=== PATIENT | male | born 1940 | race Caucasian/White ===

== ENCOUNTER 2023-12-03 14:01 | Inpatient (IN) | payer MEDICARE, BC, SELFPAY ==
[2023-12-03] VITALS (10 sets, daily range): BP systolic 138–169; BP diastolic 64–80; BMI 18.4; BMI 18.6
--- NOTE | 2023-12-03 08:39 | ED.GENMED ---
History of Present Illness
General
Chief Complaint: Breathing Problem
Source: patient
Exam Limitations: none
Time Seen by Provider: 12/03/23 08:08
Travel History
Have you had any contact with someone who has COVID-19?: No
Do you have any symptoms of coronavirus? Fever > 100 degrees, chills, cough, shortness of breath, sore throat, loss of taste or smell, muscle aches, or headache?: No
History of Present Illness
History of Present Illness:
This is an 83-year-old male who presents with a history of pulmonary fibrosis. Patient states he is chronically short of breath but started feel more short of breath last night. He states he gets worse when his nose becomes congested which it
often does. He denies fevers. No chest pain. No hemoptysis. He follows with pulmonology.
Past History
Past History
ED Past Medical History: Arrthythmia (Atrial fib), COPD, GERD and Other (Pulmonary fibrosis, right diaphragm Paralysis , glaucoma)
ED Past Surgical History: Tonsilectomy and Other ([place] inguinal hernia, esophagectomy)
Social History
Tobacco: Former smoker
Alcohol: Daily (stinger 1)
Personal:
Living: senior care
Phy Exam
Physical Exam
Physical Exam:
CONSTITUTIONAL Patient alert and oriented to person, place and time. Vital signs reviewed.
HEAD atraumatic, normocephalic.
EYES eyelids normal to inspection, Pupils equally round and reactive to light, Extraocular muscles intact, Conjunctiva normal, Sclera normal.
NECK normal range of motion, Trachea midline, no jugular venous distention.
RESPIRATORY CHEST mild respiratory distress noted, Chest expansion equal, poor air movement bilaterally
CARDIOVASCULAR regular rate and rhythm, Heart sounds normal.
ABDOMEN No distention.
BACK normal inspection, no obvious deformities
UPPER EXTREMITY range of motion normal, Motor strength normal, no cyanosis, no edema.
LOWER EXTREMITY range of motion normal, Motor strength normal, no cyanosis, no edema.
NEURO Speech normal, No focal motor deficits, [place] coma scale 15, Memory normal, Cranial Nerves intact to screening exam.
SKIN skin warm, dry, and normal in color.
PSYCHIATRIC patient oriented to person place and time, Normal affect.
Scores
Heart Failure Risk
Heart Failure Risk Score: Not Applicable
Course
Orders/Labs/Results
Orders:
Orders
12/03/23 08:11
EKG [Electrocardiogram (*1)] Urgent
Reason for Study: Shortness of Breath
EKG- Treatment ONCE
12/03/23 08:24
Dexamethasone Sod Phosphate [Decadron] 10 mg IV NOW STA
Ipratropium/Albuterol Sulfate [Duoneb] 3 ml INH R NOW STA
12/03/23 08:26
Ipratropium/Albuterol Sulfate [Duoneb] 3 ml INH R NOW STA
Ipratropium/Albuterol Sulfate [Duoneb] 3 ml INH R NOW STA
12/03/23 08:49
Albuterol Sulfate [Ventolin Nebules] 7.5 mg INH R NOW STA
12/03/23 08:59
Complete Blood Count/With Diff Urgent
Comprehensive Metabolic Panel Urgent
NT-proBNP Urgent
12/03/23 Lunch
Regular
At Your Request: Limited Participation
12/03/23 10:12
CR Chest Portable - 1 View Urgent
Comment:
Reason For Exam: SOB
Reason Study Needs to be Portable: Patient Unstable
12/03/23 13:22
Admit/Transfer Patient As Directed
Co-Sign Provider:
Level of Care: Inpatient admission
Assign to:: Telemetry
Physician / Group: Dr. Hai Smiley/Hospitalists
Diagnosis: Acute Hypoxic Respiratory Insufficiency, Shortness of breath
Reason for Telemetry: Arrhythmia
Date to Stop Telemetry: 12/06/23
Time to Stop Telemetry: 11:00
Reason for Hospitalization: Acute Hypoxic Respiratory Insufficiency, Shortness of breath
Expected length of stay greater than two midnights?: Yes
ELOS- Estimated Length of Stay in days: 3
I certify the patient meets the requirements for IP care: Yes
12/03/23 13:24
Code Status As Directed
Resuscitation Status: Do not resuscitate
Reached after discussion with pt or family/Healthcare POA: Yes
Physician note:: At the time of admission on December 03, 2023, patient had full decision-making capacity, and
stated that he was a 'DNR' and fully expressed understanding of what that meant.
12/03/23 13:25
DNR Bracelet Application ONCE
12/03/23 13:37
PULMONARY CONSULT Routine
Consulting Provider: Zack Torre
Was physician already notified: Yes
Reason for consult: COPD Exacerbation
12/03/23 14:42
Albuterol [ProAIR HFA INHALER] 2 puff INH R Q6HPRN PRN
Metoclopramide [Reglan] 10 mg PO TIDPRN PRN
12/03/23 14:42
Activity As Directed
Activity Level: As Tolerated
Intake/ Output As Directed
Frequency: q12h
Pneumatic Compression Sleeves As Directed
Type: Knee high
Vital Signs As Directed
Frequency: Per unit guidelines
Weight As Directed
Frequency: Daily
O2 Therapy [RESP] Routine
Titrate/Wean O2 to maintain O2 sat greater than (%): 90
DX Deep Vein Thrombosis Video Routine
12/03/23 15:11
Troponin I Q6H
12/03/23 16:00
Brinzolamide/Brimonidine Tart [Simbrinza 1%-0.2% Ophth Susp] 0 drop LEFT EYE TID
Dexamethasone Sod Phosphate [Decadron] 4 mg IV Q8
12/03/23 20:00
FLUTICASONE PROPIONATE 110 mcg [FLOVENT 110mcg] 1 puff INH R BID
Heparin 5,000 units SC Q12
12/03/23 20:42
Troponin I Q6H
12/03/23 22:00
Calcium Carbonate Chewable [Tums] 1 tablet PO HS
Famotidine [Pepcid] 40 mg PO HS
Latanoprost [Xalatan Ophthalmic Solution] 0 drop BOTH EYES HS
Loratadine [Claritin] 10 mg PO HS
Montelukast Sodium [Singulair] 10 mg PO HS
Tamsulosin [Flomax] 0.4 mg PO HS
12/04/23 02:42
Troponin I Q6H
12/04/23 06:00
Basic Metabolic Panel IN AM
Complete Blood Count/With Diff IN AM
Magnesium IN AM
12/04/23 08:00
Furosemide [Lasix] 20 mg PO DAILY
Pantoprazole [Protonix] 40 mg PO DAILY
Tiotropium [place] 2.5 Mcg [Spiriva Respimat 2.5 Mcg] 2 puff INH R DAILY
12/04/23 08:42
Troponin I Q6H
12/04/23 14:42
Troponin I Q6H
12/04/23 20:42
Troponin I Q6H
12/05/23 06:00
Basic Metabolic Panel IN AM
Complete Blood Count/With Diff IN AM
12/06/23 06:00
Basic Metabolic Panel IN AM
Complete Blood Count/With Diff IN AM
12/06/23 11:00
DC Protocol for Telemetry ONCE
12/07/23 06:00
Basic Metabolic Panel IN AM
Complete Blood Count/With Diff IN AM
12/08/23 06:00
Basic Metabolic Panel IN AM
Complete Blood Count/With Diff IN AM
12/09/23 06:00
Basic Metabolic Panel IN AM
Complete Blood Count/With Diff IN AM
Abnormal Lab Results
12/03/23
08:59
RBC 3.58 L 10^6/uL
(4.70-6.10)
Hgb 10.3 L g/dL
(13.0-18.0)
Hct 32.3 L %
(39.0-52.0)
MCHC 31.9 L g/dL
(33.0-37.0)
RDW 15.9 H %
(11.5-14.5)
Absolute Neuts (auto) 7.4 H 10^3/uL
(1.4-6.5)
Absolute Lymphs (auto) 0.4 L 10^3/uL
(1.2-3.4)
Neutrophils % 88.8 H %
(42.2-75.2)
Lymphocytes % 4.7 L %
(20.5-51.1)
Chloride 97 L mmol/L
(98-107)
Carbon Dioxide 38 H mmol/L
(22-30)
BUN 31 H mg/dl
(9-20)
Creatinine 1.4 H mg/dL
(0.7-1.3)
Glucose 105 H mg/dl
(70-99)
12/03/23 08:59
12/03/23 08:59
Vital Signs
Initial and Last Documented VS:
Initial Vital Signs
Temp Pulse Resp BP Pulse Ox
98.4 F 94 22 161/67 99
12/03/23 08:22 12/03/23 08:22 12/03/23 08:22 12/03/23 08:22 12/03/23 08:22
Last Documented Vital Signs
Temp Pulse Resp BP Pulse Ox
98.2 F 100 18 169/79 100
12/03/23 14:59 12/03/23 14:59 12/03/23 14:59 12/03/23 14:59 12/03/23 14:59
MDM/Problems Addressed
MDM/Problems Addressed:
Pulmonary fibrosis, hypoxia
*Radiology
Radiology exam reviewed: all reviewed NAD by ED Provider
*Pulse Oximetry
Patient hypoxic: yes
*EKG
Interpreted by ED Provider?: Yes
Rate: normal
Rhythm: sinus
Interval: normal interval
QRS Pattern: normal QRS
Ischemia: no ischemia
*Deaf/Hard Of Hearing Specialist Interpretation
Rate: normal
Interpretation: normal
Rhythm: sinus
*Critical Care Note
Total Time (30-74mins, 75-104mins- exclusive of procedures): Not Applicable
Data Reviewed
Source: patient and spouse
Prescriptions/Medications Considered But Not Given:
Considered antibiotics but afebrile.
Patient Management
Discussion with other providers: Hospitalist
Escalation/DeEscalation of care consider admission/obs:
83-year-old male with a history of COPD as well as esophageal cancer and pulmonary fibrosis. Presents short of breath. Significant short of breath with attempts to sit up to urinate on reevaluation. Requiring more oxygen. Admit.
ED Attending Note
-
Portions of this chart may have been created with voice recognition software.� Occasional wrong word or��sound alike� substitutions may have occurred due to the inherent limitations of voice recognition software.
Discharge Plan
Departure
Patient Disposition: Admit
Date of Disposition: 12/03/23
Time of Disposition: 10:50
Admit to: Telemetry
Presentation/result/management discussed w/ accepting MD/DO: Hospitalist
Discharge Problem:
Pulmonary fibrosis
Interventions
Interventions:
*Risk Screen - Suicide Last Done: 12/03/23 09:34
*General Assessment Last Done: 12/03/23 09:32
*Neglect/Abuse Screening Last Done: 12/03/23 09:36
ED- Fall Risk Assessment Last Done: 12/03/23 09:36
*ED COVID-19 Vaccine History Last Done: 12/03/23 15:21
*Nursing Disposition Last Done: 12/03/23 14:35
ED- Pulmonary Assessment Last Done: 12/03/23 09:35
Discharge Date and Time
Discharge Date/Time: 12/03/23 14:35
[2023-12-03] MEDS: DECADRON 10 MG IV (08:59)
[2023-12-03 09:17] LABS: % Basophils 0.5 % (0-2); % Eosinophils 0.1 % (0-6); % Immature Granulocytes 0.4 % (0-0.5); % Lymphocytes 4.7 % (20.5-51.1); % Monocytes 5.5 % (1.7-9.3); % Neutrophils 88.8 % (42.2-75.2); Absolute Lymphocytes 0.4 10^3/uL (1.2-3.4); Absolute Monocytes 0.5 10^3/uL (0.1-0.6); Absolute Neutrophils 7.4 10^3/uL (1.4-6.5); Hematocrit 32.3 % (39.0-52.0); Hemoglobin 10.3 g/dL (13.0-18.0); Mean Corp Hgb Conc. 31.9 g/dL (33.0-37.0); Mean Corpuscular Hgb 28.8 pg (27.0-31.0); Mean Corpuscular Volume 90.2 fL (80.0-94.0); Mean Platelet Volume 10.3 fL (7.4-10.4); Nucleated Red Blood Cells % 0 % (-); Platelet Count 178 10^3/uL (130-400); Red Blood Cell Count 3.58 10^6/uL (4.70-6.10); Red Cell Dist. Width 15.9 % (11.5-14.5); White Blood Cell Count 8.3 10^3/uL (4.8-10.8)
[2023-12-03] MEDS: VENTOLIN NEBULES 7.5 MG INH (09:22)
[2023-12-03 09:28] LABS: ALT (SGPT) 19 U/L (0-50); AST (SGOT) 32 U/L (17-59); Albumin 3.9 g/dl (3.5-5.0); Alkaline Phosphatase 80 U/L (38-126); Blood Urea Nitrogen 31 mg/dl (9-20); Carbon Dioxide 38 mmol/L (22-30); Chloride 97 mmol/L (98-107); Glucose 105 mg/dl (70-99); Potassium 4.4 mmol/L (3.5-5.1); Sodium 136 mmol/L (135-145); Total Bilirubin 0.8 mg/dl (0.2-1.3); Total Protein 6.5 g/dl (6.3-8.2); eGFR 50.18
[2023-12-03 09:37] LABS: NT-proBNP < 20.0 pg/ml
[2023-12-03 15:49] LABS: Troponin I 0.015 ng/ml
[2023-12-03] MEDS: DECADRON 4 MG IV ×2 (16:06→23:10)
[2023-12-03] MEDS: SIMBRINZA 1%-0.2% OPHTH SUSP 1 DROP LEFT EYE ×2 (16:14→20:45)
--- NOTE | 2023-12-03 17:04 | HPS.HSE ---
Family Physician
-
Family Physician: Marika Mc
Chief Complaint
-
Shortness of breath
History of Present Illness
83 y/o male with past medical history of COPD (on 4 L of oxygen at home), pulmonary fibrosis, chronic prednisone use at home, right diaphragmatic paralysis, former smoker, daily alcohol use, suspected aspiration pneumonia, paroxysmal atrial
fibrillation (on Eliquis at home), esophageal cancer status post esophagectomy, glaucoma and depression, presented with shortness of breath since last night. Patient says he felt like he could not breath; he has chronic shortness of breath and this
was a worsening of his chronic shortness of breath, he could not sleep the entire night last night, patient's said he was saturating at 83% on his usual 4 L of nasal cannula oxygen, patient says his symptoms were typical for one of his COPD
exacerbations.
Medical History
Past Medical History
Past Medical History: Reports Other (As per HPI above)
Past Surgical History: Reports Orthopedic, Tonsilectomy and Other
Additional Past Surgical History:
Hernia Repair
Social History
Tobacco: Former Smoker
Alcohol: Daily
Drug: None
Family History
Family History: Cancer
Allergies / Home Medications
Allergies reflects when Allergies were last updated in [employer].
Home Medications with original date entered in [employer]
Allergy/Medication List:
Allergies
Allergy/AdvReac Type Severity Reaction Status Date / Time
acetaminophen [From Percocet] Allergy Unknown Verified 09/26/23 23:02
bee venom protein (honey bee) Allergy Unknown Verified 09/26/23 23:02
fluorouracil Allergy Unknown Verified 09/26/23 23:02
ipratropium Allergy Unknown Verified 12/03/23 09:20
lactose Allergy Unknown Verified 09/26/23 23:02
oxycodone [From Percocet] Allergy Unknown Verified 09/26/23 23:02
Quinolones Allergy Unknown Verified 09/26/23 23:02
Home Medications
beclomethasone dipropionate 80 mcg/actuation HFA breath activated aerosol (Qvar RediHaler) 1 inh inhalation R BID Lung/Breathing Issues 05/15/23
famotidine 40 mg tablet (Pepcid) 40 mg PO HS Gastrointestinal Issue 05/15/23
fluticasone propionate 50 mcg/actuation nasal spray,suspension 1 spray intranasal HS Congestion 05/15/23
loratadine 10 mg tablet (Claritin) 10 mg PO HS Allergies 05/15/23
montelukast 10 mg tablet 10 mg PO HS Lung/Breathing Issues 05/15/23
prednisone 5 mg tablet 6 mg PO DAILY Anti-Inflammatory 05/15/23
tamsulosin 0.4 mg capsule 0.4 mg PO HS Urinary Issue 05/15/23
tiotropium 2.5 mcg-olodaterol 2.5 mcg/actuation mist for inhalation (Stiolto Respimat) 2 puff inhalation R DAILY Lung/Breathing Issues 05/15/23
calcium carbonate 200 mg calcium (500 mg) chewable tablet (Tums) 400 mg PO HS 05/21/23
lansoprazole 30 mg capsule,delayed release 30 mg PO DAILY Gastrointestinal Issue 09/26/23
metoclopramide HCl 10 mg tablet 10 mg PO TIDPRN PRN GERD 09/26/23
oxymetazoline 0.05 % nasal mist (Afrin (oxymetazoline)) 1 spray intranasal TID 09/26/23
albuterol sulfate 90 mcg/actuation aerosol inhaler (ProAir HFA) 2 puff inhalation R Q6HPRN PRN sob 12/03/23
brinzolamide 1 %-brimonidine 0.2 % eye drops,suspension (Simbrinza) 1 drp LEFT EYE TID 12/03/23
furosemide 20 mg tablet (Lasix) 20 mg PO DAILY 12/03/23
latanoprost 0.005 % eye drops 1 drp BOTH EYES HS 12/03/23
Review of Systems
-
A 12 point ROS was completed and negative except as noted: Yes
Physical Exam
Vital Signs
Vital Signs
Temp Pulse Resp BP Pulse Ox
98.2 F 100 18 169/79 100
12/03/23 14:59 12/03/23 14:59 12/03/23 14:59 12/03/23 14:59 12/03/23 14:59
Physical Exam
General: No Apparent Distress
HEENT: NormoCephalic
Respiratory: Decreased Breath Sounds
Cardiac: S1/S2 and Regular Rhythm
GI: Soft, Non Tender and Normal Bowel Sounds
Musculoskeletal: No Cyanosis and No Edema
Skin: Warm and Dry
Neuro: Awake, Alert and AO x 3
Psych: Calm and Intact Judgment/Insight
Laboratory Results
-
12/03/23 08:59
12/03/23 08:59
Laboratory Results
Total Bilirubin 0.8 mg/dl (0.2-1.3) 12/03/23 08:59
AST 32 U/L (17-59) 12/03/23 08:59
ALT 19 U/L (0-50) 12/03/23 08:59
Alkaline Phosphatase 80 U/L (38-126) 12/03/23 08:59
Troponin I 0.015 ng/ml 12/03/23 15:11
Impression/Plan
-
Assessment/Plan
Acute Hypoxic Respiratory Failure (was saturating 83% on 4 L of nasal cannula oxygen at home)
Suspected COPD exacerbation
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
Former Smoker
History of Suspected Aspiration Pneumonia
Right diaphragm Paralysis
-Was saturating 83% on 4 L of nasal cannula oxygen at home
-On chronic prednisone 6 mg daily at home/azithromycin, Qvar. Stiolto
-Continue intravenous Decadron 4 mg Q8H
-Continue home Qvar and Stiolto or equivalent
-Wean oxygen to baseline home 4 L on both rest and exertion
-Pulmonary evaluation, recommendations appreciated
-Follows up with Dr. Espino outpatient
Right subcapital hip fracture - status post ORIF 05/16/2023
Normocytic anemia - subacute. Monitor CBC. Work-up was done last admission in September 2023.
History of esophageal cancer status post esophagectomy in 2003 with a pull through stomach
2007 positive PET at [facility] had a LN and have that removed- More chemo
Cancer free since then
GERD
Continue PPI, Pepcid
BPH with urinary retention - had a Martins catheter placed a week ago
Continue Flomax
#Paroxysmal atrial fibrillation
Patient's confirmed by phone on December 03, 2023 with me that patient's Eliquis and Diltiazem were stopped in September 2023 and June 2023, respectively
Recent echo with normal EF, mild to moderate TR, pulmonary pressure 40 to 45 mmHg
#Depression-sertraline
#Daily Alcohol use - no history of alcohol withdrawal
#Glaucoma
-Continue home eye drops
#Arthritis
#Underweight
#Ex-smoker
#DVT prophylaxis- Heparin
Code Status: DNR (confirmed by patient at the time of admission)
--- NOTE | 2023-12-03 17:08 | CON.PUL ---
Consultation
Consultation Request
Date/Time Consultation Requested: 12/03/2023 - 133
Date/Time Consultation Performed: 12/03/2023 - 1430
Requesting Provider: Dr. Smiley
Performing Provider: Dr. Torre
Reason for Consultation: COPD Exacerbation
Medical History
-
Chief Complaint: SOB
History of Present Illness:
83-year-old male with a past medical history of severe COPD with moderate�severe restrictive lung defect, emphysema, right lower lobe fibrosis, recurrent pneumonia, history of asthma, history of esophageal cancer s/p XRT, esophagectomy and gastric
pull-through (2003) who presents with worsening shortness of breath. In triage, he was on 10 L/min via nonrebreather. Patient saturating 99% on 10 L/min NRB. Labs showed elevated creatinine 1.4, Hb 10.3. Decadron and albuterol given and patient
being admitted to the hospitalist service. CXR shows no acute cardiopulmonary process. Pulmonary now consulted for additional recommendations.
When I saw the patient, he was sitting on edge of bed in NAD. He says he has 'small flares all the time.' Usually the flares get better after an hour or two, but this time it did not. He is on 4L/min ATC. He is still SOB while I am interviewing
him. Denies cough. He says his SOB began last night at 7PM. No inciting event prior to SOB. No sick contacts, no recent travel, no CP, AGUIAR, abd pain, f/c.
Of note, patient follows with us in the [facility] office with Dr. Yo, last office visit on 10/23/2023. For his COPD he is on Stiolto Respimat and Qvar 80mcg/actuation. He is steroid-dependent with 6 mg daily. He used to be on budesonide however
discontinued lactose and he is lactose intolerant. He uses albuterol 2 puffs up to 4 times daily, and is on azithromycin to 50 mg daily for anti-inflammatory effect. His baseline dyspnea is due to severe obstructive lung disease with emphysema and
right diaphragm paralysis. 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 He does have history of bronchiectasis and fibrosis in the right lung base and could be related to prior history of XRT back in 2003. Of note, his
last PFT was in September 2022 showing a severe obstructive lung defect with a negative bronchodilator response, as well as moderate�severe restriction and a severely reduced gas exchange capacity (DLco: 17%). He was to follow-up with Dr. Yo
again with PFT in March 2024.
PMHx: COPD, asthma, A-fib, bronchiectasis, alpha-1 antitrypsin carrier (PI MS phenotype), history of restrictive lung disease, history of esophageal cancer s/p esophagectomy and gastric pull-through (2003) with history of XRT, history of recurrent
pneumonia
PSHx: Esophagectomy, hernia repair, tonsillectomy, cataract surgery, glaucoma surgery (right eye)
Past Medical History
Past Medical History: Other (above as per HPI)
Past Surgical History: Other (above as per HPI)
Social History
Tobacco: Former Smoker (39-wjqb-ohoj history, quit 2000)
Alcohol: None
Drug: None
Family History
Family History: Asthma (Mother) and Other (Mother: Stroke)
Allergies / Home Medications
Allergies
Allergy/AdvReac Type Severity Reaction Status Date / Time
acetaminophen [From Percocet] Allergy Unknown Verified 09/26/23 23:02
bee venom protein (honey bee) Allergy Unknown Verified 09/26/23 23:02
fluorouracil Allergy Unknown Verified 09/26/23 23:02
ipratropium Allergy Unknown Verified 12/03/23 09:20
lactose Allergy Unknown Verified 09/26/23 23:02
oxycodone [From Percocet] Allergy Unknown Verified 09/26/23 23:02
Quinolones Allergy Unknown Verified 09/26/23 23:02
Home Medications
Medication Instructions Recorded Confirmed Last Taken Type
beclomethasone dipropionate 80 1 inh inhalation R BID 05/15/23 12/03/2309/26/23 History
mcg/actuation HFA breath activated Lung/Breathing Issues
aerosol (Qvar RediHaler)
famotidine 40 mg tablet (Pepcid) 40 mg PO HS Gastrointestinal Issue 05/15/23 12/03/23 12/02/23 History
fluticasone propionate 50 1 spray intranasal HS Congestion 05/15/23 12/03/23 12/02/23 History
mcg/actuation nasal
spray,suspension
loratadine 10 mg tablet (Claritin) 10 mg PO HS Allergies 05/15/23 12/03/23 12/02/23 History
montelukast 10 mg tablet 10 mg PO HS Lung/Breathing Issues 05/15/23 12/03/23 12/02/23 History
prednisone 5 mg tablet 6 mg PO DAILY Anti-Inflammatory 05/15/23 12/03/23 12/03/23 History
tamsulosin 0.4 mg capsule 0.4 mg PO HS Urinary Issue 05/15/23 12/03/23 12/02/23 History
tiotropium 2.5 mcg-olodaterol 2.5 2 puff inhalation R DAILY 05/15/23 12/03/23 12/02/23 History
mcg/actuation mist for inhalation Lung/Breathing Issues
(Stiolto Respimat)
calcium carbonate 200 mg calcium 400 mg PO HS 05/21/23 12/03/23 12/02/23 History
(500 mg) chewable tablet (Tums)
lansoprazole 30 mg capsule,delayed 30 mg PO DAILY Gastrointestinal 09/26/23 12/03/23 12/03/23 History
release Issue
metoclopramide HCl 10 mg tablet 10 mg PO TIDPRN PRN GERD 09/26/23 12/03/23 Unknown History
oxymetazoline 0.05 % nasal mist 1 spray intranasal TID 09/26/23 12/03/23 12/03/23 History
(Afrin (oxymetazoline))
albuterol sulfate 90 mcg/actuation 2 puff inhalation R Q6HPRN PRN sob 12/03/23 12/03/23 Unknown History
aerosol inhaler (ProAir HFA)
brinzolamide 1 %-brimonidine 0.2 % 1 drp LEFT EYE TID 12/03/23 12/03/23 12/02/23 History
eye drops,suspension (Simbrinza)
furosemide 20 mg tablet (Lasix) 20 mg PO DAILY 12/03/23 12/03/23 12/03/23 History
latanoprost 0.005 % eye drops 1 drp BOTH EYES HS 12/03/23 12/03/23 12/02/23 History
Review of Systems
-
History Source: Patient
All other systems: Negative unless noted
Vitals / Labs / Diagnostic Testing
Vital Signs
Temp Pulse Resp BP Pulse Ox
98.2 F 100 18 169/79 100
12/03/23 14:59 12/03/23 14:59 12/03/23 14:59 12/03/23 14:59 12/03/23 14:59
Lab Data
12/03/23 08:59
12/03/23 08:59
Diagnostic Testing:
Physical Exam
-
HEENT: Normocephalic and Anicteric
Cardiovascular: S1/S2 and Peripheral Edema (negative)
Respiratory: Wheeze (n), Rales (negative), Rhonchi (negative), Non-Labored Respirations and Accessory Resp Muscle Use (negative)
GI: Soft, Non Distended and Non Tender
Neurology: AO x 3
Skin: Warm and Dry
General: Comfortable and Chills (negative)
Assessment
-
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
and gastric pull-through (2003) who presents with worsening shortness of breath. In triage, he was on 10 L/min via nonrebreather. Patient saturating 99% on 10 L/min NRB. Labs showed elevated creatinine 1.4, Hb 10.3. Decadron and albuterol given
and patient being admitted to the hospitalist service. CXR shows no acute cardiopulmonary process. Pulmonary now consulted for additional recommendations.
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
XRT, history of recurrent pneumonia
Impression:
#Acute on chronic respiratory failure with hypoxemia - due to suspected COPD exacerbation (is on 4 L/min chronically ATC)
#Anemia
#Chronic hypercapnic respiratory failure
#Moderate-severe restrictive lung disease
Plan:
- Systemic steroids with wean as tolerated
- Continue supplemental oxygen and titrate flow rate to maintain SpO2 >88%
- Will check ambulatory pulse ox prior to discharge to assess if he has a new oxygen requirement
- He takes azithromycin chronically --> please continue this
- Take Stiolto at home and Qvar --> would give striverdi and spiriva with Flovent 220mcg
- Re-check venous blood gas to assess pCO2 given his elevated sHCO3 and Hx of hypercapneic respiratory failure
- Maintain MAP>65
- continue prn albuterol
- DVT ppx
Pulmonary will continue to follow along. He will need to continue to follow up with Dr. Rust after discharge.
Data:
CXR 12-03-2023: No acute cardiopulmonary process.
[2023-12-03] MEDS: ProAIR HFA INHALER 2 PUFF INH (19:27)
[2023-12-03] MEDS: FLOMAX 0.400000000000000022 MG PO (20:42)
[2023-12-03] MEDS: CLARITIN 10 MG PO (20:43)
[2023-12-03] MEDS: SINGULAIR 10 MG PO (20:43)
[2023-12-03] MEDS: TUMS 1 TABLET PO (20:43)
[2023-12-03] MEDS: PEPCID 20 MG PO (20:43)
[2023-12-03 21:51] LABS: Troponin I 0.016 ng/ml
[2023-12-03] MEDS: XALATAN OPHTHALMIC SOLUTION 1 DROP BOTH EYES (23:10)
[2023-12-04 03:42] VITALS: BP 159/82
[2023-12-04 03:55] LABS: % Basophils 0.1 % (0-2); % Immature Granulocytes 0.9 % (0-0.5); % Lymphocytes 6.3 % (20.5-51.1); % Monocytes 3.1 % (1.7-9.3); % Neutrophils 89.6 % (42.2-75.2); Absolute Immature Granulocytes 0.1 10^3/uL (0-0.05); Absolute Lymphocytes 0.4 10^3/uL (1.2-3.4); Absolute Monocytes 0.2 10^3/uL (0.1-0.6); Absolute Neutrophils 6.1 10^3/uL (1.4-6.5); Hematocrit 35.2 % (39.0-52.0); Hemoglobin 11.1 g/dL (13.0-18.0); Mean Corp Hgb Conc. 31.5 g/dL (33.0-37.0); Mean Corpuscular Volume 88.9 fL (80.0-94.0); Nucleated Red Blood Cells % 0 % (-); Platelet Count 179 10^3/uL (130-400); Red Blood Cell Count 3.96 10^6/uL (4.70-6.10); Red Cell Dist. Width 15.8 % (11.5-14.5); White Blood Cell Count 6.8 10^3/uL (4.8-10.8)
[2023-12-04 04:19] LABS: Troponin I 0.018 ng/ml
[2023-12-04 04:26] LABS: Blood Urea Nitrogen 37 mg/dl (9-20); Calcium 9.5 mg/dl (8.4-10.2); Chloride 94 mmol/L (98-107); Estimated Creatinine Clearance 34 ml/min; Glucose 159 mg/dl (70-99); Magnesium 2.3 mg/dl (1.6-2.3); Potassium 4.6 mmol/L (3.5-5.1); Sodium 137 mmol/L (135-145); eGFR 54.85
[2023-12-04 04:35] LABS: Carbon Dioxide 35 mmol/L (22-30)
[2023-12-04] MEDS: LIORESAL 2.5 MG PO (05:12)
[2023-12-04 07:20] VITALS: BP 144/68
[2023-12-04] MEDS: SPIRIVA RESPIMAT 2.5 MCG 2 PUFF INH (08:06)
[2023-12-04] MEDS: FLOVENT 220MCG 2 PUFF INH ×2 (08:06→19:13)
[2023-12-04] MEDS: STRIVERDI RESPIMAT 2 PUFF INH (08:07)
[2023-12-04] MEDS: ProAIR HFA INHALER 2 PUFF INH (08:08)
[2023-12-04] MEDS: DECADRON 4 MG IV ×2 (08:18→15:17)
[2023-12-04] MEDS: PROTONIX 40 MG PO (08:25)
[2023-12-04] MEDS: LASIX 20 MG PO (08:25)
[2023-12-04] MEDS: SIMBRINZA 1%-0.2% OPHTH SUSP 1 DROP LEFT EYE ×3 (08:31→22:05)
[2023-12-04] MEDS: FLEXERIL 5 MG PO ×2 (08:37→15:19)
[2023-12-04 09:53] LABS: Troponin I 0.019 ng/ml
--- NOTE | 2023-12-04 10:01 | W.PN.PUL.V3 ---
Today's Communication / Plan
-
Continue inhalers
Wean FiO2
Nebulizers if needed
Decadron-likely reduce tomorrow
Add azithromycin
Outpatient pulmonary follow-up
Assessment
-
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
and gastric pull-through (2003) who presents with worsening shortness of breath. In triage, he was on 10 L/min via nonrebreather. Patient saturating 99% on 10 L/min NRB. Labs showed elevated creatinine 1.4, Hb 10.3. Decadron and albuterol given
and patient being admitted to the hospitalist service. CXR shows no acute cardiopulmonary process. Pulmonary now consulted for additional recommendations.
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
XRT, history of recurrent pneumonia
Impression:
#Acute on chronic respiratory failure with hypoxemia - due to suspected COPD exacerbation (is on 4 L/min chronically ATC)
#Anemia
#Chronic hypercapnic respiratory failure
#Moderate-severe restrictive lung disease
Plan:
Respiratory status slowly improving
Continue supplemental oxygen-currently on 4 L-attempt to wean-on home oxygen 4 L
Assess discharge supplemental oxygen needs prior to discharge
Spiriva and Striverdi Respimat continues in addition to Flovent
Nebulizers if needed
Mucolytic's
Singulair continues
Decadron 4 mg IV every 8 hours-will reduce in the next 24 hours if continues to improve
Resume outpatient azithromycin 150 mg daily for COPD/anti-infective effects-has been taking for 3 years
DVT prophylaxis-on heparin
GI prophylaxis-on pantoprazole
Nutrition
Physical therapy
Reviewed with nursing
He will need to continue to follow up with Dr. Rust after discharge.
Data:
CXR 12-03-2023: No acute cardiopulmonary process.
Subjective Data
-
Date of Service:
Date of Service: December 04, 2023
Chief Complaint: Pulmonary Follow Up and Dyspnea Follow Up
Subjective:
Still with cough, some shortness of breath, some improvement, no complaints of chest pain, or abdominal pain
Review of Systems
General: Other (Per HPI)
Objective Data
Data Reviewed
Vital Signs / I&O:
Vital Signs
Temp Pulse Resp BP Pulse Ox
97.9 F 76 18 144/68 99
12/04/23 07:20 12/04/23 07:20 12/04/23 08:12 12/04/23 07:20 12/04/23 08:12
Intake and Output
12/03/23 12/04/23 12/05/23
06:59 06:59 06:59
Intake Total 240 / 240
Output Total 650 / 650
Balance -410 / -410
SaO2: 99
Nasal Cannula flow liters per minute: 4
Physical Exam
General: Respiratory Distress (n) and Comfortable
HEENT: Normocephalic, Anicteric and Moist Mucous Membranes
Cardiovascular: Regular Rhythm
Respiratory: Wheeze (Forced expiratory), Crackles (Rare basilar), Rhonchi (n), Non-Labored Respirations, Accessory Resp Muscle Use (n) and Stridor (n)
GI: Soft, Non Distended and Non Tender
Neurology: Awake, Alert and No Motor Deficits
Skin: Warm, Good Color, Cyanosis (n) and Jaundice
Labs/Micro/Reports
Lab Data
12/04/23 03:49
12/04/23 03:49
[2023-12-04 11:05] VITALS: BP 139/67
--- NOTE | 2023-12-04 11:33 | W.PN.HOSP.TC ---
Today's Communication/Plan
-
cw steroids
Check Iron studies
PT eval
Assessment / Plan
Assessment / Plan
Acute Hypoxic Respiratory Failure (was saturating 83% on 4 L of nasal cannula oxygen at home)
Suspected COPD exacerbation
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
Former Smoker
History of Suspected Aspiration Pneumonia
Right diaphragm Paralysis
-Was saturating 83% on 4 L of nasal cannula oxygen at home
-Improved clinically. Improved breathing in the back to 4 L of oxygen. No active bronchospasm.
-On chronic prednisone 6 mg daily at home/azithromycin, Qvar. Stiolto
-Continue intravenous Decadron 4 mg Q8H
-Continue home Qvar and Stiolto or equivalent
-Pulmonary evaluation, recommendations appreciated
-Follows up with Dr. Espino outpatient
Right subcapital hip fracture - status post ORIF 05/16/2023
Normocytic anemia - subacute. Monitor CBC. Work-up was done last admission in September 2023.
Restless legs vs spasms - check electrolytes, ferritin. If all ok and if predominantly assodicated with sleep would suspect restless leg syndrome.
History of esophageal cancer status post esophagectomy in 2003 with a pull through stomach
2007 positive PET [facility] had a LN and have that removed- More chemo
Cancer free since then
GERD
Continue PPI, Pepcid
BPH with urinary retention - had a Martins catheter placed a week ago
Continue Flomax
#Paroxysmal atrial fibrillation
Patient's confirmed by phone on December 03, 2023� to Dr Mondragon patient's Eliquis and Diltiazem were stopped in September 2023 and June 2023, respectively
Recent echo with normal EF, mild to moderate TR, pulmonary pressure 40 to 45 mmHg
#Depression-sertraline
#Daily Alcohol use - no history of alcohol withdrawal
#Glaucoma
-Continue home eye drops
#Arthritis
#Underweight
#Ex-smoker
#DVT prophylaxis- Heparin
Code Status:�DNR (confirmed by patient at the time of admission)
Anticipated Discharge: 24 - 48 hours
Subjective/Interval History
-
Date of Service: December 04, 2023
Breathing is greatly improved.
Back to his 4 L of oxygen.
Denies any chest pain.
Not much of cough.
No nausea or vomiting.
Patient has been having some spasms in the leg on for few days now. Last 2 days it has been worse. Sometimes it wakes him up from sleep. Sometimes noticed during the day. It involves both the legs. Denies any back pain associated with that.
Denies any sciatica symptoms. No tingling numbness in the legs. No motor weakness.
Objective Data
-
Labs:
Laboratory Results
12/04/23
03:49
WBC 6.8
Hgb 11.1 L
Hct 35.2 L
Plt Count 179
Sodium 137
Potassium 4.6
Chloride 94 L
Carbon Dioxide 35 H
BUN 37 H
Creatinine 1.3
Glucose 159 H
Calcium 9.5
Vital Signs:
Vital Signs
Temp Pulse Resp BP Pulse Ox
97.9 F 73 18 139/67 100
12/04/23 11:05 12/04/23 11:05 12/04/23 11:05 12/04/23 11:05 12/04/23 11:05
I&O
12/03/23 12/04/23 12/05/23
06:59 06:59 06:59
Intake Total 240 / 240
Output Total 650 / 650
Balance -410 / -410
Review of Systems
-
Constitutional: Denies Fever
Abdomen/GI: Denies Abdominal Pain, Nausea or Vomiting
Neuro: Denies Dizzy
Physical Exam
-
General: No Apparent Distress
HEENT: Moist Mucous Membranes
Respiratory: Crackles (Fine bilateral bases) and Non Labored Respirations; Negative Wheezes or Accessory Resp Muscle Use
Cardiac: Regular Rhythm and S1/S2
GI: Soft
Neuro: AO x 3 and No Motor Deficits
Psych: Calm; Negative Confused
Data Reviewed
-
Labs: Labs Reviewed by me
[2023-12-04 12:25] LABS: Iron 49 ug/dl (49-181)
[2023-12-04 12:35] LABS: Percent Saturation 10 % (20-50); Total Iron Binding Capacity 449 ug/dl (261-462)
[2023-12-04] MEDS: TYLENOL 650 MG PO (12:38)
[2023-12-04 13:23] LABS: Ferritin 11.2 ng/ml (17.9-464.0)
[2023-12-04 14:11] VITALS: BMI 18.6
[2023-12-04 15:15] VITALS: BP 150/73
[2023-12-04] MEDS: ZITHROMAX 250 MG PO (16:41)
--- NOTE | 2023-12-04 16:52 | CM ---
CM following re: d/c planning
Chart reviewed
CM met with the patient at bedside; IA completed
Pt states he resides with his spouse in a 1SH with no JARAD
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
Pt has been to SNF for rehab however doesn't recall which one and has also had VN however doesn't recall the agency
Pt does have a r/w, spc, w/c, & O2 for use as needed
Pt has prescription coverage and rx's are filled at [facility] [address] [facility]
Pt PCP-[facility]
Pt has no skilled needs and anticipates d/c home when stable
PLAN; d/c home no needs anticipated
[2023-12-04 19:38] VITALS: BP 142/73
[2023-12-04] MEDS: PEPCID 20 MG PO (21:58)
[2023-12-04] MEDS: FLOMAX 0.400000000000000022 MG PO (21:58)
[2023-12-04] MEDS: CLARITIN 10 MG PO (21:58)
[2023-12-04] MEDS: SINGULAIR 10 MG PO (21:59)
[2023-12-04] MEDS: TUMS 1 TABLET PO (21:59)
[2023-12-04] MEDS: XALATAN OPHTHALMIC SOLUTION 1 DROP BOTH EYES (22:06)
[2023-12-04 22:13] LABS: Troponin I 0.027 ng/ml
[2023-12-04 23:10] VITALS: BP 125/64
[2023-12-05] VITALS (7 sets, daily range): BP systolic 118–147; BP diastolic 55–79; PULSE 99; O2SAT 98
[2023-12-05] MEDS: DECADRON 4 MG IV ×3 (00:46→20:00)
[2023-12-05] MEDS: FLUSH (NSS) 2 FLUSH IV ×2 (00:48→20:01)
[2023-12-05 06:33] LABS: % Basophils 0.1 % (0-2); % Immature Granulocytes 0.6 % (0-0.5); % Lymphocytes 3.5 % (20.5-51.1); % Monocytes 4.3 % (1.7-9.3); % Neutrophils 91.5 % (42.2-75.2); Absolute Immature Granulocytes 0.1 10^3/uL (0-0.05); Absolute Lymphocytes 0.4 10^3/uL (1.2-3.4); Absolute Monocytes 0.5 10^3/uL (0.1-0.6); Absolute Neutrophils 9.5 10^3/uL (1.4-6.5); Hematocrit 36.4 % (39.0-52.0); Hemoglobin 11.5 g/dL (13.0-18.0); Mean Corp Hgb Conc. 31.6 g/dL (33.0-37.0); Mean Corpuscular Hgb 28.8 pg (27.0-31.0); Mean Platelet Volume 10.5 fL (7.4-10.4); Nucleated Red Blood Cells % 0 % (-); Platelet Count 189 10^3/uL (130-400); Red Cell Dist. Width 15.9 % (11.5-14.5); White Blood Cell Count 10.4 10^3/uL (4.8-10.8)
[2023-12-05 06:51] LABS: Blood Urea Nitrogen 41 mg/dl (9-20); Calcium 9.1 mg/dl (8.4-10.2); Carbon Dioxide 37 mmol/L (22-30); Chloride 95 mmol/L (98-107); Estimated Creatinine Clearance 34 ml/min; Glucose 126 mg/dl (70-99); Potassium 4.4 mmol/L (3.5-5.1); Sodium 136 mmol/L (135-145); eGFR 54.85
[2023-12-05] MEDS: FLOVENT 220MCG 2 PUFF INH ×2 (07:43→19:19)
[2023-12-05] MEDS: SPIRIVA RESPIMAT 2.5 MCG 2 PUFF INH (07:43)
[2023-12-05] MEDS: ProAIR HFA INHALER 2 PUFF INH ×2 (07:44→12:50)
[2023-12-05] MEDS: STRIVERDI RESPIMAT 2 PUFF INH (07:53)
[2023-12-05] MEDS: PROTONIX 40 MG PO (08:24)
[2023-12-05] MEDS: LASIX 20 MG PO (08:24)
[2023-12-05] MEDS: ZITHROMAX 250 MG PO (08:24)
[2023-12-05] MEDS: SIMBRINZA 1%-0.2% OPHTH SUSP 1 DROP LEFT EYE ×3 (08:25→20:11)
--- NOTE | 2023-12-05 12:37 | W.PN.HOSP.TC ---
Today's Communication/Plan
-
Start on IV iron
Wean steroids per pulmonary
DC planning
Assessment / Plan
Assessment / Plan
Acute Hypoxic Respiratory Failure (was saturating 83% on 4 L of nasal cannula oxygen at home)
Suspected COPD exacerbation
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
Former Smoker
History of Suspected Aspiration Pneumonia
Right diaphragm Paralysis
-Was saturating 83% on 4 L of nasal cannula oxygen at home
-Improved clinically. Improved breathing in the back to 4 L of oxygen. No active bronchospasm.
-On chronic prednisone 6 mg daily at home/azithromycin, Qvar. Stiolto
-Continue intravenous Decadron 4 mg [id number] per pulmonary
-Continue home Qvar and Stiolto or equivalent
-Pulmonary evaluation, recommendations appreciated
-Follows up with Dr. Espino outpatient
Right subcapital hip fracture - status post ORIF 05/16/2023
Normocytic anemia - subacute. Monitor CBC. Work-up was done last admission in September 2023.
Suspected restless legs-low ferritin noted. Mild anemia noted. Treat with IV iron while in-house complete IV iron therapy as an outpatient and see if restless legs improved. Otherwise patient advised to follow-up with neurologist try dopaminergic
medication after ruling out other causes.
History of esophageal cancer status post esophagectomy in 2003 with a pull through stomach
2007 positive PET [facility] had a LN and have that removed- More chemo
Cancer free since then
GERD
Continue PPI, Pepcid
BPH with urinary retention - had a Martins catheter placed a week ago
Continue Flomax
#Paroxysmal atrial fibrillation
Patient's confirmed by phone on December 03, 2023� to Dr Mondragon patient's Eliquis and Diltiazem were stopped in September 2023 and June 2023, respectively
Recent echo with normal EF, mild to moderate TR, pulmonary pressure 40 to 45 mmHg
#Depression-sertraline
#Daily Alcohol use - no history of alcohol withdrawal
#Glaucoma
-Continue home eye drops
#Arthritis
#Underweight
#Ex-smoker
#DVT prophylaxis- Heparin
Code Status:�DNR (confirmed by patient at the time of admission)
Anticipated Discharge: Within 24 hours
Subjective/Interval History
-
Date of Service: December 05, 2023
Patient feels improved with the breathing. Currently on 4 L which is his chronic FiO2.
Continues to have restless legs.
Objective Data
-
Labs:
Laboratory Results
12/05/23
05:24
WBC 10.4
Hgb 11.5 L
Hct 36.4 L
Plt Count 189
Sodium 136
Potassium 4.4
Chloride 95 L
Carbon Dioxide 37 H
BUN 41 H
Creatinine 1.3
Glucose 126 H
Calcium 9.1
Vital Signs:
Vital Signs
Temp Pulse Resp BP Pulse Ox
98.1 F 87 20 138/72 100
12/05/23 11:00 12/05/23 11:00 12/05/23 11:00 12/05/23 11:00 12/05/23 11:00
I&O
12/04/23 12/05/23 12/06/23
06:59 06:59 06:59
Intake Total 240 / 240 960 / 960
Output Total 650 / 650 250 / 250
Balance -410 / -410 710 / 710
Review of Systems
-
Constitutional: Denies Fever
EENT: Denies Sore Throat
Cardiac: Denies Chest Pain
Abdomen/GI: Denies Abdominal Pain, Nausea or Vomiting
Neuro: Denies Dizzy
Physical Exam
-
General: No Apparent Distress
HEENT: Moist Mucous Membranes
Respiratory: Crackles (Bibasilar) and Non Labored Respirations; Negative Wheezes or Accessory Resp Muscle Use
Cardiac: Regular Rhythm and S1/S2
Neuro: AO x 3
Data Reviewed
-
Labs: Labs Reviewed by me
[2023-12-05] MEDS: FERRLECIT 110 MG IV (13:22)
--- NOTE | 2023-12-05 13:53 | W.PN.PUL.V3 ---
Today's Communication / Plan
-
.
Decrease steroids.
Consider changing to oral steroids with wean in the next 24 hours.
Wean oxygen.
Increase activity.
Assessment
-
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
and gastric pull-through (2003) who presents with worsening shortness of breath. In triage, he was on 10 L/min via nonrebreather. Patient saturating 99% on 10 L/min NRB. Labs showed elevated creatinine 1.4, Hb 10.3. Decadron and albuterol given
and patient being admitted to the hospitalist service. CXR shows no acute cardiopulmonary process. Pulmonary now consulted for additional recommendations.
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
XRT, history of recurrent pneumonia
Impression:
#Acute on chronic respiratory failure with hypoxemia - due to suspected COPD exacerbation (is on 4 L/min chronically ATC)
#Anemia
#Chronic hypercapnic respiratory failure
#Moderate-severe restrictive lung disease
Plan:
His respiratory status continues to improve.
Wean his supplemental oxygen-currently on 4 L-attempt to wean-on home oxygen 4 L
Spiriva and Striverdi Respimat continues in addition to Flovent
Nebulizers if needed
Mucolytic's
Singulair continues
Decadron 4 mg IV every 8 hours-will reduce in the next 24 hours if continues to improve.
We resumed his outpatient azithromycin 150 mg daily for COPD/anti-infective effects-has been taking for 3 years
DVT prophylaxis-on heparin
GI prophylaxis-on pantoprazole
Nutrition
Physical therapy
Reviewed with nursing as well as his at the bedside
He will need to continue to follow up with Dr. Rust after discharge.
Data:
CXR 12-03-2023: No acute cardiopulmonary process.
Subjective Data
-
Date of Service:
Date of Service: December 05, 2023
Chief Complaint: Pulmonary Follow Up and Dyspnea Follow Up
Subjective:
Overall feels better, no chest pain, no mucus, no abdominal pain, has some leg cramping
Review of Systems
General: Other (per HPI)
Objective Data
Data Reviewed
Vital Signs / I&O:
Vital Signs
Temp Pulse Resp BP Pulse Ox
98.1 F 96 20 138/72 100
12/05/23 11:00 12/05/23 12:53 12/05/23 12:53 12/05/23 11:00 12/05/23 11:00
Intake and Output
12/04/23 12/05/23 12/06/23
06:59 06:59 06:59
Intake Total 240 / 240 960 / 960
Output Total 650 / 650 250 / 250
Balance -410 / -410 710 / 710
SaO2: 100
Nasal Cannula flow liters per minute: 4
Physical Exam
General: Respiratory Distress (n) and Comfortable
HEENT: Normocephalic, Anicteric and Moist Mucous Membranes
Cardiovascular: Regular Rhythm
Respiratory: Wheeze (Forced expiratory), Crackles (Rare basilar), Rhonchi (n), Non-Labored Respirations, Accessory Resp Muscle Use (n) and Stridor (n)
GI: Soft, Non Distended and Non Tender
Neurology: Awake, Alert and No Motor Deficits
Skin: Warm, Good Color, Cyanosis (n) and Jaundice
Labs/Micro/Reports
Lab Data
12/05/23 05:24
12/05/23 05:24
[2023-12-05] MEDS: SINGULAIR 10 MG PO (21:22)
[2023-12-05] MEDS: FLOMAX 0.400000000000000022 MG PO (21:22)
[2023-12-05] MEDS: CLARITIN 10 MG PO (21:22)
[2023-12-05] MEDS: TUMS 1 TABLET PO (21:22)
[2023-12-05] MEDS: PEPCID 20 MG PO (21:22)
[2023-12-05] MEDS: XALATAN OPHTHALMIC SOLUTION 1 DROP LEFT EYE (21:24)
[2023-12-06 03:22] VITALS: BP 145/72
--- NOTE | 2023-12-06 05:49 | PTCARENOTE ---
Patient's HR to 160 for 6 sec while sleeping this shift. Patient remained asymptomatic. HR returned to baseline with no further episodes/ For continued evaluation.
[2023-12-06 06:00] VITALS: BMI 18.6
[2023-12-06 07:30] VITALS: BP 125/68
[2023-12-06] MEDS: PROTONIX 40 MG PO (08:09)
[2023-12-06] MEDS: DECADRON 4 MG IV (08:09)
[2023-12-06] MEDS: ZITHROMAX 250 MG PO (08:09)
[2023-12-06] MEDS: LASIX 20 MG PO (08:09)
[2023-12-06] MEDS: SIMBRINZA 1%-0.2% OPHTH SUSP 1 DROP LEFT EYE ×2 (08:11→16:26)
--- NOTE | 2023-12-06 08:31 | W.PN.PUL.V3 ---
Today's Communication / Plan
-
Continue to wean oxygen.
Increase activity.
Discontinue Decadron.
Changed to oral prednisone with slow taper
Assessment
-
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
and gastric pull-through (2003) who presents with worsening shortness of breath. In triage, he was on 10 L/min via nonrebreather. Patient saturating 99% on 10 L/min NRB. Labs showed elevated creatinine 1.4, Hb 10.3. Decadron and albuterol given
and patient being admitted to the hospitalist service. CXR shows no acute cardiopulmonary process. Pulmonary now consulted for additional recommendations.
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
XRT, history of recurrent pneumonia
Impression:
#Acute on chronic respiratory failure with hypoxemia - due to suspected COPD exacerbation (is on 4 L/min chronically ATC)
#Anemia
#Chronic hypercapnic respiratory failure
#Moderate-severe restrictive lung disease
Plan:
.
The patient's pulmonary status continues to improve
Wean his supplemental oxygen-currently on 4 L-attempt to wean-on home oxygen 4 L
Spiriva and Striverdi Respimat continues in addition to Flovent
Nebulizers if needed
Mucolytic's
Singulair continues.
Discontinue intravenous Decadron.
Changed to prednisone with slow taper
We resumed his outpatient azithromycin 150 mg daily for COPD/anti-infective effects-has been taking for 3 years-reinitiated 12/04/23
DVT prophylaxis-on heparin
GI prophylaxis-on pantoprazole
Nutrition
Physical therapy
.
Reviewed with Dr. Arellano.
Stable for potential discharge from a pulmonary perspective
He will need to continue to follow up with Dr. Rust after discharge.
Data:
CXR 12-03-2023: No acute cardiopulmonary process.
Subjective Data
-
Date of Service:
Date of Service: December 06, 2023
Chief Complaint: Pulmonary Follow Up and Dyspnea Follow Up
Subjective:
Feels better, oxygen, wheezing, some chest congestion, occasional cough, no chest pain or abdominal pain
Review of Systems
General: Other ( per HPI)
Objective Data
Data Reviewed
Vital Signs / I&O:
Vital Signs
Temp Pulse Resp BP Pulse Ox
98 F 80 19 145/72 98
12/06/23 03:22 12/06/23 03:22 12/06/23 03:22 12/06/23 03:22 12/06/23 03:22
Intake and Output
12/05/23 12/06/23 12/07/23
06:59 06:59 06:59
Intake Total 960 / 960 1440 / 1440
Output Total 250 / 250 1200 / 1200
Balance 710 / 710 240 / 240
SaO2: 98
Nasal Cannula flow liters per minute: 4
Physical Exam
General: Respiratory Distress (n) and Comfortable
HEENT: Normocephalic, Anicteric and Moist Mucous Membranes
Cardiovascular: Regular Rhythm
Respiratory: Wheeze (Forced expiratory), Crackles (Rare basilar), Rhonchi (n), Non-Labored Respirations, Accessory Resp Muscle Use (n) and Stridor (n)
GI: Soft, Non Distended and Non Tender
Neurology: Awake, Alert and No Motor Deficits
Skin: Warm, Good Color, Cyanosis (n) and Jaundice
Labs/Micro/Reports
Lab Data
12/05/23 05:24
12/05/23 05:24
[2023-12-06] MEDS: ProAIR HFA INHALER 2 PUFF INH (08:34)
[2023-12-06] MEDS: SPIRIVA RESPIMAT 2.5 MCG 2 PUFF INH (08:35)
[2023-12-06] MEDS: FLOVENT 220MCG 2 PUFF INH (08:35)
[2023-12-06] MEDS: STRIVERDI RESPIMAT 2 PUFF INH (08:36)
--- NOTE | 2023-12-06 11:19 | W.PN.HOSP.TC ---
Today's Communication/Plan
-
DC
Assessment / Plan
Assessment / Plan
Acute Hypoxic Respiratory Failure (was saturating 83% on 4 L of nasal cannula oxygen at home)
Suspected COPD exacerbation
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
Former Smoker
History of Suspected Aspiration Pneumonia
Right diaphragm Paralysis
-Was saturating 83% on 4 L of nasal cannula oxygen at home
-Improved clinically. Improved breathing in the back to 4 L of oxygen. No active bronchospasm.
-On chronic prednisone 6 mg daily at home/azithromycin, Qvar. Stiolto
-Continue intravenous Decadron 4 mg [id number] per pulmonary
-Continue home Qvar and Stiolto or equivalent
-Pulmonary evaluation, recommendations appreciated
-Follows up with Dr. Espino outpatient
Right subcapital hip fracture - status post ORIF 05/16/2023
Normocytic anemia - subacute. stable CBC. Work-up was done last admission in September 2023.
Suspected restless legs-low ferritin noted. Mild anemia noted. Treat with IV iron while in-house complete IV iron therapy as an outpatient and see if restless legs improved. Otherwise patient advised to follow-up with neurologist try dopaminergic
medication after ruling out other causes.
History of esophageal cancer status post esophagectomy in 2003 with a pull through stomach
2007 positive PET [facility] had a LN and have that removed- More chemo
Cancer free since then
GERD
Continue PPI, Pepcid
BPH with urinary retention - had a Martins catheter placed a week ago
Continue Flomax
#Paroxysmal atrial fibrillation
Patient's confirmed by phone on December 03, 2023� to Dr Mondragon patient's Eliquis and Diltiazem were stopped in September 2023 and June 2023, respectively
Recent echo with normal EF, mild to moderate TR, pulmonary pressure 40 to 45 mmHg
#Depression-sertraline
#Daily Alcohol use - no history of alcohol withdrawal
#Glaucoma
-Continue home eye drops
#Arthritis
#Underweight
#Ex-smoker
#DVT prophylaxis- Heparin
DC after seen by pulmonary
Code Status:�DNR (confirmed by patient at the time of admission)
Anticipated Discharge: Today
Subjective/Interval History
-
Date of Service: December 06, 2023
Breathing remains improved.
No new symptoms.
Objective Data
-
Vital Signs:
Vital Signs
Temp Pulse Resp BP Pulse Ox
98.2 F 82 18 125/68 99
12/06/23 07:30 12/06/23 08:44 12/06/23 08:44 12/06/23 07:30 12/06/23 08:44
I&O
12/05/23 12/06/23 12/07/23
06:59 06:59 06:59
Intake Total 960 / 960 1440 / 1440
Output Total 250 / 250 1200 / 1200
Balance 710 / 710 240 / 240
Review of Systems
-
Cardiac: Denies Chest Pain
Abdomen/GI: Reports Diarrhea (one large stool today); Denies Nausea or Vomiting
Neuro: Denies Dizzy
Physical Exam
-
General: No Apparent Distress
HEENT: Moist Mucous Membranes
Respiratory: Crackles (few faint crackes bases) and Non Labored Respirations; Negative Wheezes or Accessory Resp Muscle Use
Cardiac: Regular Rhythm and S1/S2
GI: Soft
Neuro: AO x 3
[2023-12-06 11:22] VITALS: BP 146/79
[2023-12-06] MEDS: FERRLECIT 110 MG IV (14:36)
--- NOTE | 2023-12-06 15:11 | W.DS.TRANS ---
DC Summary - Spark Tester
-
Discharge Instructions:
Sleep Apnea Risk Intermediate
Discharge Diagnosis/Procedures COPD flare; acute hypoxic on chronic respiratory
failure; on home O2 at 4 L; history of
pulmonary fibrosis
Acute on chronic hypoxic respiratory
Diet Regular
Activity As tolerated
Driving Restrictions As prior to admission
Bathing Restrictions None
Blood Work Repeat Iron studies in 2-4 weeks through your
PCP
Instructions:
Stand-Alone Forms:
Changes to Home Medications: Yes
Discharge Medications:
DC Medications w/original date entered in [facility]
beclomethasone dipropionate 80 mcg/actuation HFA breath activated aerosol (Qvar RediHaler) 1 inh inhalation R BID Lung/Breathing Issues 05/15/23
famotidine 40 mg tablet (Pepcid) 40 mg PO HS Gastrointestinal Issue 05/15/23
fluticasone propionate 50 mcg/actuation nasal spray,suspension 1 spray intranasal HS Congestion 05/15/23
loratadine 10 mg tablet (Claritin) 10 mg PO HS Allergies 05/15/23
montelukast 10 mg tablet 10 mg PO HS Lung/Breathing Issues 05/15/23
tamsulosin 0.4 mg capsule 0.4 mg PO HS Urinary Issue 05/15/23
tiotropium 2.5 mcg-olodaterol 2.5 mcg/actuation mist for inhalation (Stiolto Respimat) 2 puff inhalation R DAILY Lung/Breathing Issues 05/15/23
calcium carbonate 200 mg calcium (500 mg) chewable tablet (Tums) 400 mg PO HS Supplement 05/21/23
lansoprazole 30 mg capsule,delayed release 30 mg PO DAILY Gastrointestinal Issue 09/26/23
metoclopramide HCl 10 mg tablet 10 mg PO TIDPRN PRN GERD 09/26/23
oxymetazoline 0.05 % nasal mist (Afrin (oxymetazoline)) 1 spray intranasal TID Lung/Breathing Issues 09/26/23
albuterol sulfate 90 mcg/actuation aerosol inhaler (ProAir HFA) 2 puff inhalation R [id number] PRN sob 12/03/23
brinzolamide 1 %-brimonidine 0.2 % eye drops,suspension (Simbrinza) 1 drp LEFT EYE TID Eye Condition 12/03/23
furosemide 20 mg tablet (Lasix) 20 mg PO DAILY Fluid Retention/Swelling 12/03/23
latanoprost 0.005 % eye drops 1 drp LEFT EYE HS Eye Condition 12/03/23
azithromycin 250 mg tablet 250 mg PO DAILY 12/04/23
ferrous sulfate 325 mg (65 mg iron) tablet 325 mg PO DAILY #30 tabs 12/06/23
prednisone 10 mg tablet 10 mg PO DIRECTED #18 tabs 12/06/23
prednisone 5 mg tablet 6 mg PO DAILY Anti-Inflammatory #0 tabs 12/06/23
Home Medication Changes
New medication-prednisone, ferrous sulfate
Pending Results: No
--- NOTE | 2023-12-06 15:12 | W.DCSUMMARY ---
Discharge Summary
Discharge Data
Date of Admission: 12/03/23
Date of Discharge: 12/06/23
-
Pending Results: No
Hospital Course
Primary diagnosis:
Chronic obstructive pulmonary disease exacerbation
Acute on chronic hypoxic respiratory failure-on home O2 at 4 L
Possible restless leg syndrome
Secondary diagnosis:
Right lower fibrosis
Moderate-severe restrictive lung disease
History of esophageal cancer status post esophagectomy in 2003 with a pull through stomach
Normocytic anemia
Right subcapital hip fracture - status post open reduction internal fixation 05/16/2023
Paroxysmal atrial fibrillation
Depression
Hospital course:
Patient presented with worsening shortness of breath. Only on 4 L but here he was requiring 10 L on admission. It was noted that he was in acute COPD exacerbation. Chest x-ray showed no acute cardiopulmonary disease. Was seen by pulmonary. He
was started on steroids with clinical improvement and he was back on 4 L. He was discharged on steroid taper. He is normally on 6 mg prednisone maintenance which he should get back once taper is done. He was resumed on his respiratory
medicationsincluding azithromycin which he takes daily for anti-infective effects.
He was complaining of restless legs. Noted more when inactive and also in sleep. Iron stores shows ferritin of 11.7. He has normocytic anemia. He was given IV iron 2 doses here and switch to oral ferrous sulfate. He was advised to follow-up
with the repeat iron studies check and also see the response of iron supplementation on restless legs. If no improvement with correction of iron stores advised to see a neurologist to evaluate further for treatment of restless leg syndrome and also
evaluate to rule out other causes of restless legs
Consultants on board:
Pulmonary-Dr. Layton
Discharge Plan
-
Patient Disposition: Home (Routine Discharge)
Discharge Diagnosis/Procedures: COPD flare; acute hypoxic on chronic respiratory failure; on home O2 at 4 L; history of pulmonary fibrosis
Acute on chronic hypoxic respiratory
Condition: Fair
Diet: Regular
Activity: As tolerated
Driving Restrictions: As prior to admission
Bathing Restrictions: None
Blood Work: Repeat Iron studies in 2-4 weeks through your PCP
Referrals:
Marika Mc MD [Family Provider] - in less than 1 week
Prescriptions:
New
prednisone 10 mg tablet
10 mg PO DIRECTED Qty: 18 0RF
Rx Instructions:
30mg daily * 3 days and cut by 10mg every 3 days and
Once done with 10mg tabs start your 6mg prednisone
ferrous sulfate 325 mg (65 mg iron) tablet
325 mg PO DAILY Qty: 30 0RF
Continued
famotidine [Pepcid] 40 mg Tablet
40 mg PO HS
tamsulosin 0.4 mg Capsule
0.4 mg PO HS
montelukast 10 mg Tablet
10 mg PO HS
fluticasone propionate 50 mcg/actuation [place],Suspension
1 spray INTRANASAL HS
loratadine [Claritin] 10 mg Tablet
10 mg PO HS
Stiolto Respimat 2.5-2.5 mcg/actuation Mist
2 puff INHALATION R DAILY
Qvar RediHaler 80 mcg/actuation Hfa Aerosol Breath Activated
1 inh INHALATION R BID
calcium carbonate [Tums] 200 mg calcium (500 mg) Tablet,Chewable
400 mg PO HS
lansoprazole 30 mg capsule,delayed release(DR/EC)
30 mg PO DAILY
metoclopramide HCl 10 mg tablet
10 mg PO TIDPRN PRN (Reason: GERD)
Afrin (oxymetazoline) 0.05 % Mist
1 spray INTRANASAL TID
latanoprost 0.005 % Drops
1 drp LEFT EYE HS
furosemide [Lasix] 20 mg Tablet
20 mg PO DAILY
albuterol sulfate [ProAir HFA] 90 mcg/actuation Hfa Aerosol Inhaler
2 puff INHALATION R Q6HPRN PRN (Reason: sob)
Simbrinza 1-0.2 % Drops,Suspension
1 drp LEFT EYE TID
azithromycin 250 mg Tablet
250 mg PO DAILY
prednisone 5 mg Tablet
6 mg PO DAILY Qty: 0 0RF
Rx Instructions:
Start taking it once you are done with prednisone taper
Discharge Orders:
Discharge Patient (As Directed); Ordered 12/06/23
Ordered By: Curtis Arellano
[2023-12-06 15:22] VITALS: BP 137/71
--- NOTE | 2023-12-06 16:45 | CM ---
CM following re: d/c planning
Chart reviewed
Pt is medically stable for d/c
Per PT assessment post d/c recommendation wavered btwn home PT vs home no needs
IMM was reviewed via phone and a copy sent to patient electronically
Pt to f/u outpatient with pulm and is O2 dependent
No additional d/c needs to note
PLAN; d/c home no needs identified
== END 2023-12-06 19:06 | disposition home or self-care (01) | DRG 190 ==
LOC: 4 EAST ACU 14:01
PROVIDERS: ADMITTING PHYSICIAN Hospitalist; ATTENDING PHYSICIAN Internal Medicine; CONSULT PHYSICIAN Internal Medicine Critical Care Medicine; EMERGENCY PHYSICIAN Emergency Medicine; FAMILY PHYSICIAN Family Medicine
DX: J44.1 Chronic obstructive pulmonary disease with (acute) exacerbation (principal); J96.21 Acute and chronic respiratory failure with hypoxia; J96.22 Acute and chronic respiratory failure with hypercapnia; Z68.1 Body mass index [BMI] 19.9 or less, adult; Z66 Do not resuscitate; Z87.891 Personal history of nicotine dependence; D64.9 Anemia, unspecified; I48.0 Paroxysmal atrial fibrillation; F32.A Depression, unspecified; H40.9 Unspecified glaucoma; R63.6 Underweight; M19.90 Unspecified osteoarthritis, unspecified site; K21.9 Gastro-esophageal reflux disease without esophagitis; J98.4 Other disorders of lung; J84.10 Pulmonary fibrosis, unspecified
CPT/HCPCS: 71045; 80048; 80053; 82728; 83540; 83550; 83735; 83880; 84484; 85025; 93005; 94640; 96374; 97162; 99285; J2916

== ENCOUNTER 2024-06-14 18:05 | Emergency (ER) | payer MEDICARE, BC, SELFPAY ==
[2024-06-14] VITALS (8 sets, daily range): BP systolic 143–169; BP diastolic 64–101; BMI 20.6
[2024-06-14 18:42] LABS: Lactic Acid 1.1 mmol/L (0.7-2.0)
[2024-06-14 18:43] LABS: ALT (SGPT) 19 U/L (0-50); AST (SGOT) 38 U/L (17-59); Albumin 4.2 g/dl (3.5-5.0); Alkaline Phosphatase 79 U/L (38-126); Blood Urea Nitrogen 36 mg/dl (9-20); Calcium 9.9 mg/dl (8.4-10.2); Chloride 91 mmol/L (98-107); Glucose 105 mg/dl (70-99); Lipase 75 U/L (23-300); Potassium 4.8 mmol/L (3.5-5.1); Sodium 138 mmol/L (135-145); Total Protein 6.5 g/dl (6.3-8.2); eGFR 46.19
[2024-06-14 19:12] LABS: Carbon Dioxide 37 mmol/L (22-30)
[2024-06-14 19:50] LABS: % Basophils 0.5 % (0-2); % Eosinophils 0.8 % (0-6); % Immature Granulocytes 0.3 % (0-0.5); % Lymphocytes 8.6 % (20.5-51.1); % Monocytes 12.8 % (1.7-9.3); Absolute Basophils 0.1 10^3/uL (0-0.2); Absolute Eosinophils 0.1 10^3/uL (0-0.7); Absolute Lymphocytes 1.2 10^3/uL (1.2-3.4); Absolute Monocytes 1.8 10^3/uL (0.1-0.6); Absolute Neutrophils 10.7 10^3/uL (1.4-6.5); Hematocrit 38.3 % (39.0-52.0); Hemoglobin 12.2 g/dL (13.0-18.0); Mean Corp Hgb Conc. 31.9 g/dL (33.0-37.0); Mean Corpuscular Hgb 31.2 pg (27.0-31.0); Mean Platelet Volume 10.4 fL (7.4-10.4); Nucleated Red Blood Cells % 0 % (-); Platelet Count 164 10^3/uL (130-400); Red Blood Cell Count 3.91 10^6/uL (4.70-6.10); Red Cell Dist. Width 13.1 % (11.5-14.5); White Blood Cell Count 13.9 10^3/uL (4.8-10.8)
[2024-06-14 21:31] LABS: Urine Albumin Negative (Neg - Trace); Urine Bilirubin Negative (Negative); Urine Character Clear (Clear); Urine Color Yellow; Urine Glucose Negative (Negative); Urine Ketone Negative (Negative); Urine Leukocyte Negative (Negative); Urine Nitrite Negative (Negative); Urine Occult Blood Negative (Negative); Urine Urobilinogen 1+ (Neg - 1+)
[2024-06-14] MEDS: NSS 500 IV (21:35)
--- NOTE | 2024-06-14 21:52 | ED.GENMED ---
History of Present Illness
General
Chief Complaint: Abdominal Pain
Source: patient
Time Seen by Provider: 06/14/24 21:05
History of Present Illness
History of Present Illness:
83-year-old male with past medical history of COPD, no pulmonary fibrosis, atrial fibrillation presenting to the emergency department for evaluation of lower abdominal pain that began around 11 this morning, not any worse presently but constant
cramping sensation, nonradiating and accompanied with frequent urination and 3 bowel movements with the last one being slightly loose. Patient got both his COVID and flu vaccine earlier this morning and symptoms started shortly thereafter. No
reported fever at home. Patient did not take anything for his symptoms prior to arrival. Patient also notes that he has been dealing with some dysuria for a few weeks but only told his about this upon getting to the ER. He notes that he has
had some urinary frequency with this but was not sure if this was related to his BPH. No other concerns at this time.
Past History
Past History
ED Past Medical History: Arrthythmia (Atrial fib), Cancer, COPD, GERD and Other (Pulmonary fibrosis, right diaphragm Paralysis , glaucoma)
ED Past Surgical History: Tonsilectomy and Other ([place] inguinal hernia, esophagectomy)
Social History
Tobacco: Former smoker
Alcohol: Daily (stinger 1)
Drug: None
Personal:
Living: with family
Review of Systems
Review of Systems
All Other Systems: ROS reviewed and negative except as documented in HPI and ROS
Phy Exam
Physical Exam
Physical Exam:
GENERAL: Alert , in no apparent distress
EYE: clear conjunctiva b/l
HEAD: NCAT
ENT: mmm.
CARDIAC: Regular rate and rhythm .
LUNGS: Clear breath sounds bilaterally, no acute respiratory distress, no wheezes/rales/rhonchi
ABDOMEN: Soft, generally tender, slightly worse in the right mid abdomen ss, no r/g, no cvat, negative Soares sign, no tenderness at McBurney's point
NEUROLOGICAL: Alert and oriented
SKIN: Warm and dry, skin intact.
MUSCULOSKELETAL: No edema, well perfused.
PSYCH: Normal and appropriate interaction.
Scores
Heart Failure Risk
Heart Failure Risk Score: Not Applicable
Heart Score for Chest Pain Patients
STEMI patient?: Not applicable
Withdrawal Assessment of Alcohol
Withdrawal Assessment Completed?: Not applicable
Course
Orders/Labs/Results
Orders:
Orders
06/14/24 18:21
Comprehensive Metabolic Panel Urgent
Lactic Acid Urgent
Lipase Urgent
06/14/24 19:42
Complete Blood Count/With Diff Urgent
06/14/24 21:16
CT Abd/pelvis W Iv Cont Urgent
Comment:
Reason For Exam: generalized abd pain, loose stool, leukocytosis
0.9% Sodium Chloride 1000 ml [Nss] 1,000 ml IV BOLUS
06/14/24 21:26
Urinalysis Reflex To Culture Urgent
Date Specimen was Collected: 06/14/24
Time Specimen was Collected: 21:19
06/14/24 21:34
0.9% Sodium Chloride 500 ml [Nss] 500 ml IV BOLUS
06/14/24 21:48
Diphenhydramine [Benadryl] 50 mg IV NOW STA
Hydrocortisone Sod Succinate [Solu-Cortef] 200 mg IV NOW STA
Abnormal Lab Results
06/14/24 06/14/24
18:21 19:42
WBC 13.9 H 10^3/uL
(4.8-10.8)
RBC 3.91 L 10^6/uL
(4.70-6.10)
Hgb 12.2 L g/dL
(13.0-18.0)
Hct 38.3 L %
(39.0-52.0)
MCV 98.0 H fL
(80.0-94.0)
MCH 31.2 H pg
(27.0-31.0)
MCHC 31.9 L g/dL
(33.0-37.0)
Absolute Neuts (auto) 10.7 H 10^3/uL
(1.4-6.5)
Absolute Monos (auto) 1.8 H 10^3/uL
(0.1-0.6)
Neutrophils % 77.0 H %
(42.2-75.2)
Lymphocytes % 8.6 L %
(20.5-51.1)
Monocytes % 12.8 H %
(1.7-9.3)
Chloride 91 L mmol/L
(98-107)
Carbon Dioxide 37 H mmol/L
(22-30)
BUN 36 H mg/dl
(9-20)
Creatinine 1.5 H mg/dL
(0.7-1.3)
Glucose 105 H mg/dl
(70-99)
06/14/24 19:42
06/14/24 18:21
Vital Signs
Initial and Last Documented VS:
Initial Vital Signs
Temp Pulse Resp BP Pulse Ox
98.2 F 81 20 164/68 99
06/14/24 18:13 06/14/24 18:13 06/14/24 18:13 06/14/24 18:13 06/14/24 18:13
Last Documented Vital Signs
Temp Pulse Resp BP Pulse Ox
97.8 F 87 25 153/64 95
06/14/24 23:20 06/14/24 23:20 06/14/24 23:20 06/14/24 23:20 06/14/24 23:20
MDM/Problems Addressed
Differential Diagnosis Includes:
Vaccine reaction, diverticulitis, colitis, urinary tract infection
MDM/Problems Addressed:
83-year-old male presenting emergency department for evaluation of generalized abdominal discomfort that started since 11 AM, not any worse presently but patient states this has not gotten any better. He does note that he has had some loose stool
and urinary symptoms. The urinary symptoms have been ongoing for a little longer however. Labs were initiated in triage which reveal a leukocytosis of 13,000. Patient also has a mild ROBBY. notes that he really has not eaten or drank anything
today. Will treat with fluids. Will obtain CT scan. Patient notes a questionable iodine allergy so we will pretreat with hydrocortisone and Benadryl. Patient declining anything for pain. Urinalysis pending.
*Pulse Oximetry
Patient hypoxic: no
*Critical Care Note
Total Time (30-74mins, 75-104mins- exclusive of procedures): Not Applicable
Data Reviewed
Review of Other/Old Records Reveals: Labs and Records
Source: patient
Patient Management
Escalation/DeEscalation of care consider admission/obs:
While attempting to get a CT scan patient unable to lay flat for the scan for more than 5 seconds. We attempted to obtain the scan multiple times and then patient refused. He notes that chronically he is unable to lie flat and that this is not
related to any of the IV fluids we have given him. I did offer the patient and to be admitted and observed with repeat abdominal exams and lab trending however patient ultimately states he wants to go home. 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
and states she does feel comfortable monitoring the patient at home. They were again advised on his renal function and that patient should have this rechecked in 1 to 2 weeks. Advise close follow-up with primary care provider. Aware of return
precautions to the ER.
ED Attending Note
-
Portions of this chart may have been created with voice recognition software.� Occasional wrong word or��sound alike� substitutions may have occurred due to the inherent limitations of voice recognition software.
Discharge Plan
Departure
Patient Disposition: Home (Routine Discharge)
Date of Disposition: 06/14/24
Time of Disposition: 23:24
Patient with high blood pressure during this ER visit?: Yes
Discharge Problem:
Abdominal pain, ROBBY (acute kidney injury)
Instructions: Abdominal Pain
Prescriptions:
No Action
famotidine [Pepcid] 40 mg Tablet
40 mg PO HS
tamsulosin 0.4 mg Capsule
0.4 mg PO HS
montelukast 10 mg Tablet
10 mg PO HS
fluticasone propionate 50 mcg/actuation [place],Suspension
1 spray INTRANASAL HS
loratadine [Claritin] 10 mg Tablet
10 mg PO HS
Stiolto Respimat 2.5-2.5 mcg/actuation Mist
2 puff INHALATION R DAILY
Qvar RediHaler 80 mcg/actuation Hfa Aerosol Breath Activated
1 inh INHALATION R BID
calcium carbonate [Tums] 200 mg calcium (500 mg) Tablet,Chewable
400 mg PO HS
lansoprazole 30 mg capsule,delayed release(DR/EC)
30 mg PO DAILY
metoclopramide HCl 10 mg tablet
10 mg PO TIDPRN PRN (Reason: GERD)
Afrin (oxymetazoline) 0.05 % Mist
1 spray INTRANASAL TID
latanoprost 0.005 % Drops
1 drp LEFT EYE HS
furosemide [Lasix] 20 mg Tablet
20 mg PO DAILY
albuterol sulfate [ProAir HFA] 90 mcg/actuation Hfa Aerosol Inhaler
2 puff INHALATION R Q6HPRN PRN (Reason: sob)
Simbrinza 1-0.2 % Drops,Suspension
1 drp LEFT EYE TID
azithromycin 250 mg Tablet
250 mg PO DAILY
prednisone 10 mg tablet
10 mg PO DIRECTED Qty: 18 0RF
Rx Instructions:
30mg daily * 3 days and cut by 10mg every 3 days and
Once done with 10mg tabs start your 6mg prednisone
prednisone 5 mg Tablet
6 mg PO DAILY Qty: 0 0RF
Rx Instructions:
Start taking it once you are done with prednisone taper
ferrous sulfate 325 mg (65 mg iron) tablet
325 mg PO DAILY Qty: 30 0RF
Referrals:
Marika Mc MD [Family Provider] -
Interventions
Interventions:
*Risk Screen - Suicide Last Done: 06/14/24 18:08
*General Assessment Last Done: 06/14/24 18:13
*Neglect/Abuse Screening Last Done: 06/14/24 19:43
ED- Fall Risk Assessment Last Done: 06/14/24 19:37
TE-Ekzsln-Bhqgwvivia Assessment Last Done: 06/14/24 19:36
Discharge Date and Time
Print Language: NICARAGUAN
[2024-06-14] MEDS: SOLU-CORTEF 200 MG IV (21:55)
[2024-06-14] MEDS: BENADRYL 50 MG IV (21:55)
== END 2024-06-15 00:15 | disposition home or self-care (01) ==
LOC: EMR 18:05
PROVIDERS: Emergency Medicine; Physician Assistant Medical; EMERGENCY PHYSICIAN Emergency Medicine; FAMILY PHYSICIAN Family Medicine
DX: R10.9 Unspecified abdominal pain (principal); N17.9 Acute kidney failure, unspecified; J44.9 Chronic obstructive pulmonary disease, unspecified; I48.91 Unspecified atrial fibrillation; K21.9 Gastro-esophageal reflux disease without esophagitis; J84.10 Pulmonary fibrosis, unspecified; H40.9 Unspecified glaucoma; D72.829 Elevated white blood cell count, unspecified; Z87.891 Personal history of nicotine dependence; Z90.49 Acquired absence of other specified parts of digestive tract
CPT/HCPCS: 99282; 96374; 96375; 96361; 80053; 81003; 83605; 83690; 85025

== ENCOUNTER → 2024-08-12 07:58 | Outpatient (REF) | payer MEDICARE, BC, SELFPAY | LOC: WOUND 07:58 | PROVIDERS: ATTENDING PHYSICIAN Surgery; FAMILY PHYSICIAN Family Medicine | DX: T25.221A Burn of second degree of right foot, initial encounter (principal); T24.231A Burn of second degree of right lower leg, initial encounter; X10.0XXA Contact with hot drinks, initial encounter | CPT/HCPCS: 99203 ==